=== PATIENT | male | born 1990 | race Caucasian/White ===

== ENCOUNTER 2018-08-02 20:53 | Emergency (ER) | payer OTHER, SELFPAY ==
[2018-08-02 21:10] VITALS: BP 185/104; PULSE 123; RESP 18; O2SAT 100
--- NOTE | 2018-08-02 21:45 | ED.PSYCH ---
HPI - Psych <José Antonio Mathew DO - Last Filed: 08/06/18 07:30> General Chief Complaint: Psychiatric Symptoms Stated Complaint: feel unsafe and that his life is at threat Time Seen by Provider: 08/02/18 21:13 Source: patient and family Mode of arrival: ambulatory Limitations: altered mental status History of Present Illness HPI Narrative: 28-year-old male, nonsmoker with known history of bipolar presents with both parents and a chief complaint of a likely manic episode. Patient was triggered at a therapy session in [place] one week ago and has been spiraling ever since. He began having trouble and went out to his parents house on [address]. His psychiatrist called ahead and states he believes the patient needs hospitalization and even called facilities ahead of time looking for a bed. He believes the patient is having a rather severe manic episode. The patient has been taking his [place], but stopped his Seroquel a few days ago. He denies suicidal or homicidal thoughts. He has been hospitalized in the past for mental health reasons. He denies alcohol or drugs. Parents drove him here and he became scared that they were attempting to hurt him [place] He was [place] here by Police. complaint: altered mental status Onset (ago): day(s) Duration: getting worse History of same: Yes Exacerbating factors: therapy Context: not taking psychiatric medications and significant life stressor Associated psychiatric symptoms: racing thoughts Associated symptoms: denies other symptoms Treatments prior to arrival: none Related Data Home Medications Medication Instructions Recorded Confirmed [EMERGEN-C] PRN #0 01/04/12 ibuprofen 200 mg PO PRN #0 01/04/12 lithium carbonate 600 mg PO BID 08/03/18 08/03/18 Allergies Allergy/AdvReac Type Severity Reaction Status Date / Time No Known Drug Allergies Allergy Verified 08/02/18 21:10 Review of Systems <DO Quinn Venegas Last Filed: 08/06/18 07:30> Constitutional Denies chills, Denies fever(s), Denies lethargy and Denies weakness Eyes Denies change in vision, Denies eye discharge, Denies irritation and Denies loss of vision ENT Ears, Nose, Mouth, and Throat: Denies change in voice, Denies neck pain and Denies sore throat Cardiovascular Denies chest pain, Denies irregular heart rhythm, Denies lightheadedness, Denies palpitations, Denies dyspnea, Denies dyspnea on exertion and Denies orthopnea Respiratory Denies cough, Denies dyspnea, Denies dyspnea on exertion and Denies wheezing Gastrointestinal Gastrointestinal: Denies abdominal pain, Denies change in bowel habits, Denies diarrhea, Denies nausea and Denies vomiting Genitourinary Denies hematuria, Denies flank pain, Denies urinary incontinence and Denies urinary urgency Musculoskeletal Denies neck pain Integumentary/Breasts Denies pruritus, Denies erythema, Denies rash and Denies wounds Neurologic Denies confusion, Denies loss of vision and Denies weakness Psychiatric Denies anxiety, Denies confusion, Denies depression, Reports difficulty concentrating, Reports paranoia, Denies homicidal ideation and Denies suicidal ideation Endocrine Denies palpitations Hematologic/Lymphatic Denies easy bruising Allergic/Immunologic Denies wheezing Exam <José Antonio Mathew, DO - Last Filed: 08/06/18 07:30> Narrative Exam Narrative: 28M in obvious distress, upset, pacing in his room. Admittedly scared Initial Vital Signs Initial Vital Signs: Vital Signs Pulse Rate 123 H 08/02/18 21:10 Respiratory Rate 18 08/02/18 21:10 Blood Pressure 185/104 H 08/02/18 21:10 Pulse Oximetry 100 08/02/18 21:10 Const General: cooperative, well developed, acute distress and anxious Nutritional Appearance: well nourished Orientation: alert, awake, oriented x3 and not confused [facility] Head: normal to inspection Ears: hearing grossly normal bilaterally Nose: external nose normal Face and sinus: normal facial exam Eyes General: appearance normal, both eyes and all related structures Eyelids: eyelids normal Conjunctivae: conjunctivae normal Sclera: sclerae normal Pupils: PERRL EOM: EOM intact bilaterally Neck Neck: normal visual inspection, trachea midline, No lymphadenopathy, No midline deformity and No JVD Lymphatic: No lymphedema Chest Chest: normal inspection of the chest Resp Effort & Inspection: normal respiratory effort, able to speak in complete sentences, no respiratory distress and no use of accessory muscles Auscultation: clear to auscultation bilaterally, no rales, no rhonchi and no wheezes GI Inspection: non-distended Palpation: soft, no hepatosplenomegaly, No guarding, No pulsatile mass and No tender Auscultation: normal bowel sounds Back/Spine/Pelvis Back: No CVA tenderness Cervical Spine: cervical ROM normal and No pain with cervical ROM Thoracic/Lumbar Spine: thoracic and lumbar spine normal to inspection Skin General: no rashes or lesions noted, No jaundice and No petechiae Neuro General: alert, oriented x3, gait normal and no focal motor deficits Speech: speech normal Psych Appearance: grossly normal Speech and Movement: pressured speech and restless Mood: anxious mood and paranoid Affect: anxious affect Attitude: guarded <Rima Blankenship DO - Last Filed: 08/03/18 15:33> Initial Vital Signs Initial Vital Signs: Vital Signs Pulse Rate 123 H 08/02/18 21:10 Respiratory Rate 18 08/02/18 21:10 Blood Pressure 185/104 H 08/02/18 21:10 Pulse Oximetry 100 08/02/18 21:10 Course <José Antonio Mathew DO - Last Filed: 08/06/18 07:30> Orders Ordered: Discontinued Medications Diazepam (Valium) 5 mg PO NOW ONE Stop: 08/02/18 21:44 Last Admin: 08/02/18 21:49 Dose: 5 mg Ibuprofen (Advil) 400 mg PO NOW ONE Stop: 08/03/18 03:08 Last Admin: 08/03/18 03:20 Dose: 400 mg [place] Carbonate ([place] Carbonate) 300 mg PO NOW ONE Stop: 08/03/18 05:58 Last Admin: 08/03/18 07:18 Dose: 300 mg [place] Carbonate ([place] Carbonate) 300 mg PO NOW ONE Stop: 08/03/18 09:39 Last Admin: 08/03/18 10:05 Dose: 300 mg Lorazepam (Ativan) 2 mg PO NOW ONE Stop: 08/03/18 04:02 Last Admin: 08/03/18 04:17 Dose: 2 mg Lorazepam (Ativan) 1 mg IV NOW ONE Stop: 08/03/18 14:14 Last Admin: 08/03/18 14:19 Dose: Lorazepam (Ativan) 1 mg PO NOW ONE Stop: 08/03/18 14:19 Last Admin: 08/03/18 14:20 Dose: 1 mg Olanzapine (Zyprexa Zydis) 10 mg PO NOW ONE Stop: 08/03/18 01:31 Last Admin: 08/03/18 01:34 Dose: 10 mg Reevaluation(s) Reevaluation #1: Patient continuing the escalating of his manic behavior up until just before [facility]HP arise. He is flight of ideas and pressured speech and even began spotting confucianism terms. He may 2 attempts at leaving the room but was able to be verbally redirected. DCR has spent a significant amount of time with the patient and agrees he is gravely disabled and will meet admission criteria. After making multiple phone calls he is determined there is no available bed in the [facility] and must walk away. He has given information to the [facility] who will be checking in on the patient before . Patient is agreeable to waiting for a repeat evaluation later today. There are expected discharges at 10:00 a.m. Vital Signs - 8 hr 08/03/18 08:45 08/03/18 14:30 Temperature 96.4 F L 97.6 F Pulse Rate 113 H 108 H Respiratory Rate 20 18 Blood Pressure [Right Arm] 170/97 H 160/102 H Pulse Oximetry 98 96 <Rima Blankenship, - Last Filed: 08/03/18 15:33> Orders Ordered: Discontinued Medications Diazepam (Valium) 5 mg PO NOW ONE Stop: 08/02/18 21:44 Last Admin: 08/02/18 21:49 Dose: 5 mg Ibuprofen (Advil) 400 mg PO NOW ONE Stop: 08/03/18 03:08 Last Admin: 08/03/18 03:20 Dose: 400 mg [place] Carbonate ([place] Carbonate) 300 mg PO NOW ONE Stop: 08/03/18 05:58 Last Admin: 08/03/18 07:18 Dose: 300 mg [place] Carbonate ([place] Carbonate) 300 mg PO NOW ONE Stop: 08/03/18 09:39 Last Admin: 08/03/18 10:05 Dose: 300 mg Lorazepam (Ativan) 2 mg PO NOW ONE Stop: 08/03/18 04:02 Last Admin: 08/03/18 04:17 Dose: 2 mg Lorazepam (Ativan) 1 mg IV NOW ONE Stop: 08/03/18 14:14 Last Admin: 08/03/18 14:19 Dose: Lorazepam (Ativan) 1 mg PO NOW ONE Stop: 08/03/18 14:19 Last Admin: 08/03/18 14:20 Dose: 1 mg Olanzapine (Zyprexa Zydis) 10 mg PO NOW ONE Stop: 08/03/18 01:31 Last Admin: 08/03/18 01:34 Dose: 10 mg Reevaluation(s) Reevaluation #1: Patient evaluated with Dr. Mathew. Patient is calm at this time and we discussed plan for [facility] to re-dispatch at 10am as they feel patient would benefit from hospitalization. Patient is aware. He received his usual morning medications. Time: 07:15 Time: 13:47 Reevaluation #3: Patient has been checked on several times, he is uncomfortable with door to the room closed so kept open. He has had breakfast and lunch and has been cooperative while here. Evaluated again by [facility] with [facility]. Who detained patient, he is aware of this and comfortable with this and plan for transport to [facility]. He is accepted by Dr. Webb. Patient was given additional 300mg lithium this morning. His dose was increased to 600mg daily on 07/11/18. Patient history and labs also reviewed with parents who have been in the waiting area during patient's entire stay. [place] level was subtherapeutic. Patient feeling more anxious and given dose of ativan 1mg po EMS arrived and patient transported without issue. Vital Signs - 8 hr 08/03/18 08:45 08/03/18 14:30 Temperature 96.4 F L 97.6 F Pulse Rate 113 H 108 H Respiratory Rate 20 18 Blood Pressure [Right Arm] 170/97 H 160/102 H Pulse Oximetry 98 96 MDM - Psych <José Antonio Mathew, DO - Last Filed: 08/06/18 07:30> Lab Data Result diagrams: 08/02/18 21:49 08/02/18 21:49 Lab Results 08/02/18 08/02/18 08/02/18 Range/Units 21:15 21:49 21:49 WBC 11.1 H (4.5-11.0) X10^3/uL RBC 5.28 (4.5-5.9) X10^6/uL Hgb 16.3 (13.5-17.5) g/dL Hct 47.4 (41-53) % MCV 89.8 (80-100) fL MCH 30.8 (26-34) PG MCHC 34.3 (30-36) % RDW 12.5 (11.6-14.8) % Plt Count 215 (150-400) X10^3/uL Neut % (Auto) 82.4 H (50-75) % Lymph % (Auto) 9.0 L (25-40) % Rhea % (Auto) 7.9 (3-14) % Eos % (Auto) 0.3 L (2-4) % Baso % (Auto) 0.4 (0-2) % Neut # (Auto) 9200 H (5658-9293) /uL Lymph # (Auto) 1000 L (1617-6857) /uL Rhea # (Auto) 900 (0-900) /uL Eos # (Auto) 0 (0-450) /uL Baso # (Auto) 0 (0-100) /uL Sodium 138 (137-145) mmol/L Potassium 4.5 (3.4-5.1) mmol/L Chloride 99 (98-107) mmol/L Carbon Dioxide 29 (22-32) mmol/L BUN 16 (9-20) mg/dL Creatinine 1.00 (0.66-1.25) mg/dL Estimated GFR > 60.0 (>60) mL/min BUN/Creatinine Ratio 16.0 (6-22) Glucose 101 H (70-100) mg/dL Calcium 10.1 (8.4-10.2) mg/dL Total Bilirubin 0.6 (0.2-1.3) mg/dL AST 41 (17-59) IU/L ALT 65 (21-72) IU/L Alkaline Phosphatase 82 (38-126) U/L Total Protein 8.2 (6.3-8.2) g/dL Albumin 5.1 H (3.5-5.0) g/dL Globulin 3.1 (1.7-4.1) g/dL Albumin/Globulin Ratio 1.6 (1.0-2.8) TSH (0.47-4.68) uIU/mL Urine Opiates Screen Negative (Negative) Ur Oxycodone Screen Negative (Negative) Urine Methadone Screen Negative (Negative) Ur Barbiturates Screen Negative (Negative) U Tricyclic Antidepress Positive H (Negative) Ur Phencyclidine Scrn Negative (Negative) Ur Amphetamines Screen Negative (Negative) U Methamphetamines Scrn Negative (Negative) Ur MDMA Scrn (Ecstasy) Negative (Negative) U Benzodiazepines Scrn Negative (Negative) [place] (0.6-1.2) mmol/L Urine Cocaine Screen Negative (Negative) U Marijuana (THC) Screen Negative (Negative) Ethyl Alcohol < 10 mg/dL 08/02/18 Range/Units 21:49 WBC (4.5-11.0) X10^3/uL RBC (4.5-5.9) X10^6/uL Hgb (13.5-17.5) g/dL Hct (41-53) % MCV (80-100) fL MCH (26-34) PG MCHC (30-36) % RDW (11.6-14.8) % Plt Count (150-400) X10^3/uL Neut % (Auto) (50-75) % Lymph % (Auto) (25-40) % Rhea % (Auto) (3-14) % Eos % (Auto) (2-4) % Baso % (Auto) (0-2) % Neut # (Auto) (6407-5544) /uL Lymph # (Auto) (5673-1801) /uL Rhea # (Auto) (0-900) /uL Eos # (Auto) (0-450) /uL Baso # (Auto) (0-100) /uL Sodium (137-145) mmol/L Potassium (3.4-5.1) mmol/L Chloride (98-107) mmol/L Carbon Dioxide (22-32) mmol/L BUN (9-20) mg/dL Creatinine (0.66-1.25) mg/dL Estimated GFR (>60) mL/min BUN/Creatinine Ratio (6-22) Glucose (70-100) mg/dL Calcium (8.4-10.2) mg/dL Total Bilirubin (0.2-1.3) mg/dL AST (17-59) IU/L ALT (21-72) IU/L Alkaline Phosphatase (38-126) U/L Total Protein (6.3-8.2) g/dL Albumin (3.5-5.0) g/dL Globulin (1.7-4.1) g/dL Albumin/Globulin Ratio (1.0-2.8) TSH 2.31 (0.47-4.68) uIU/mL Urine Opiates Screen (Negative) Ur Oxycodone Screen (Negative) Urine Methadone Screen (Negative) Ur Barbiturates Screen (Negative) U Tricyclic Antidepress (Negative) Ur Phencyclidine Scrn (Negative) Ur Amphetamines Screen (Negative) U Methamphetamines Scrn (Negative) Ur MDMA Scrn (Ecstasy) (Negative) U Benzodiazepines Scrn (Negative) [place] 0.5 L (0.6-1.2) mmol/L Urine Cocaine Screen (Negative) U Marijuana (THC) Screen (Negative) Ethyl Alcohol mg/dL <Rima Blankenship, DO - Last Filed: 08/03/18 15:33> Lab Data Attestation: I reviewed the patient's lab results. Lab Results 08/02/18 08/02/18 08/02/18 Range/Units 21:15 21:49 21:49 WBC 11.1 H (4.5-11.0) X10^3/uL RBC 5.28 (4.5-5.9) X10^6/uL Hgb 16.3 (13.5-17.5) g/dL Hct 47.4 (41-53) % MCV 89.8 (80-100) fL MCH 30.8 (26-34) PG MCHC 34.3 (30-36) % RDW 12.5 (11.6-14.8) % Plt Count 215 (150-400) X10^3/uL Neut % (Auto) 82.4 H (50-75) % Lymph % (Auto) 9.0 L (25-40) % Rhea % (Auto) 7.9 (3-14) % Eos % (Auto) 0.3 L (2-4) % Baso % (Auto) 0.4 (0-2) % Neut # (Auto) 9200 H (4316-7207) /uL Lymph # (Auto) 1000 L (5571-7262) /uL Rhea # (Auto) 900 (0-900) /uL Eos # (Auto) 0 (0-450) /uL Baso # (Auto) 0 (0-100) /uL Sodium 138 (137-145) mmol/L Potassium 4.5 (3.4-5.1) mmol/L Chloride 99 (98-107) mmol/L Carbon Dioxide 29 (22-32) mmol/L BUN 16 (9-20) mg/dL Creatinine 1.00 (0.66-1.25) mg/dL Estimated GFR > 60.0 (>60) mL/min BUN/Creatinine Ratio 16.0 (6-22) Glucose 101 H (70-100) mg/dL Calcium 10.1 (8.4-10.2) mg/dL Total Bilirubin 0.6 (0.2-1.3) mg/dL AST 41 (17-59) IU/L ALT 65 (21-72) IU/L Alkaline Phosphatase 82 (38-126) U/L Total Protein 8.2 (6.3-8.2) g/dL Albumin 5.1 H (3.5-5.0) g/dL Globulin 3.1 (1.7-4.1) g/dL Albumin/Globulin Ratio 1.6 (1.0-2.8) TSH (0.47-4.68) uIU/mL Urine Opiates Screen Negative (Negative) Ur Oxycodone Screen Negative (Negative) Urine Methadone Screen Negative (Negative) Ur Barbiturates Screen Negative (Negative) U Tricyclic Antidepress Positive H (Negative) Ur Phencyclidine Scrn Negative (Negative) Ur Amphetamines Screen Negative (Negative) U Methamphetamines Scrn Negative (Negative) Ur MDMA Scrn (Ecstasy) Negative (Negative) U Benzodiazepines Scrn Negative (Negative) [place] (0.6-1.2) mmol/L Urine Cocaine Screen Negative (Negative) U Marijuana (THC) Screen Negative (Negative) Ethyl Alcohol < 10 mg/dL 08/02/18 Range/Units 21:49 WBC (4.5-11.0) X10^3/uL RBC (4.5-5.9) X10^6/uL Hgb (13.5-17.5) g/dL Hct (41-53) % MCV (80-100) fL MCH (26-34) PG MCHC (30-36) % RDW (11.6-14.8) % Plt Count (150-400) X10^3/uL Neut % (Auto) (50-75) % Lymph % (Auto) (25-40) % Rhea % (Auto) (3-14) % Eos % (Auto) (2-4) % Baso % (Auto) (0-2) % Neut # (Auto) (9213-2647) /uL Lymph # (Auto) (1120-6820) /uL Rhea # (Auto) (0-900) /uL Eos # (Auto) (0-450) /uL Baso # (Auto) (0-100) /uL Sodium (137-145) mmol/L Potassium (3.4-5.1) mmol/L Chloride (98-107) mmol/L Carbon Dioxide (22-32) mmol/L BUN (9-20) mg/dL Creatinine (0.66-1.25) mg/dL Estimated GFR (>60) mL/min BUN/Creatinine Ratio (6-22) Glucose (70-100) mg/dL Calcium (8.4-10.2) mg/dL Total Bilirubin (0.2-1.3) mg/dL AST (17-59) IU/L ALT (21-72) IU/L Alkaline Phosphatase (38-126) U/L Total Protein (6.3-8.2) g/dL Albumin (3.5-5.0) g/dL Globulin (1.7-4.1) g/dL Albumin/Globulin Ratio (1.0-2.8) TSH 2.31 (0.47-4.68) uIU/mL Urine Opiates Screen (Negative) Ur Oxycodone Screen (Negative) Urine Methadone Screen (Negative) Ur Barbiturates Screen (Negative) U Tricyclic Antidepress (Negative) Ur Phencyclidine Scrn (Negative) Ur Amphetamines Screen (Negative) U Methamphetamines Scrn (Negative) Ur MDMA Scrn (Ecstasy) (Negative) U Benzodiazepines Scrn (Negative) [place] 0.5 L (0.6-1.2) mmol/L Urine Cocaine Screen (Negative) U Marijuana (THC) Screen (Negative) Ethyl Alcohol mg/dL MDM Narrative Medical decision making narrative: Patient has been official detained by [facility] and has bed secured at [facility]. Discharge Plan Departure Patient Disposition: Xfer Psychiatric Hosp Clinical Impression: Bipolar affective, manic, severe Discharge Date/Time: 08/03/18 14:52 Interventions: ED Discharge Assessment Last Done: 08/03/18 14:33
[2018-08-02] MEDS: diazePAM 5 MG TABLET PO (21:49)
--- NOTE | 2018-08-02 21:51 | ED_ITS ---
HPI - Psych <José Antonio Mathew DO - Last Filed: 08/06/18 07:30> General Chief Complaint: Psychiatric Symptoms Stated Complaint: feel unsafe and that his life is at threat Time Seen by Provider: 08/02/18 21:13 Source: patient and family Mode of arrival: ambulatory Limitations: altered mental status History of Present Illness HPI Narrative: 28-year-old male, nonsmoker with known history of bipolar presents with both parents and a chief complaint of a likely manic episode. Patient was triggered at a therapy session in [place] one week ago and has been spiraling ever since. He began having trouble and went out to his parents house on [address]. His psychiatrist called ahead and states he believes the patient needs hospitalization and even called facilities ahead of time looking for a bed. He believes the patient is having a rather severe manic episode. The patient has been taking his Earle, but stopped his Seroquel a few days ago. He denies suicidal or homicidal thoughts. He has been hospitalized in the past for mental health reasons. He denies alcohol or drugs. Parents drove him here and he became scared that they were attempting to hurt him [place] He was transported here by Police. complaint: altered mental status Onset (ago): day(s) Duration: getting worse History of same: Yes Exacerbating factors: therapy Context: not taking psychiatric medications and significant life stressor Associated psychiatric symptoms: racing thoughts Associated symptoms: denies other symptoms Treatments prior to arrival: none Related Data Home Medications Medication Instructions Recorded Confirmed [EMERGEN-C] PRN #0 01/04/12 ibuprofen 200 mg PO PRN #0 01/04/12 lithium carbonate 600 mg PO BID 08/03/18 08/03/18 Allergies Allergy/AdvReac Type Severity Reaction Status Date / Time No Known Drug Allergies Allergy Verified 08/02/18 21:10 Review of Systems <DO Quinn Venegas Last Filed: 08/06/18 07:30> Constitutional Denies chills, Denies fever(s), Denies lethargy and Denies weakness Eyes Denies change in vision, Denies eye discharge, Denies irritation and Denies loss of vision ENT Ears, Nose, Mouth, and Throat: Denies change in voice, Denies neck pain and Denies sore throat Cardiovascular Denies chest pain, Denies irregular heart rhythm, Denies lightheadedness, Denies palpitations, Denies dyspnea, Denies dyspnea on exertion and Denies orthopnea Respiratory Denies cough, Denies dyspnea, Denies dyspnea on exertion and Denies wheezing Gastrointestinal Gastrointestinal: Denies abdominal pain, Denies change in bowel habits, Denies diarrhea, Denies nausea and Denies vomiting Genitourinary Denies hematuria, Denies flank pain, Denies urinary incontinence and Denies urinary urgency Musculoskeletal Denies neck pain Integumentary/Breasts Denies pruritus, Denies erythema, Denies rash and Denies wounds Neurologic Denies confusion, Denies loss of vision and Denies weakness Psychiatric Denies anxiety, Denies confusion, Denies depression, Reports difficulty concentrating, Reports paranoia, Denies homicidal ideation and Denies suicidal ideation Endocrine Denies palpitations Hematologic/Lymphatic Denies easy bruising Allergic/Immunologic Denies wheezing Exam <José Antonio Mathew, DO - Last Filed: 08/06/18 07:30> Narrative Exam Narrative: 28M in obvious distress, upset, pacing in his room. Admittedly scared Initial Vital Signs Initial Vital Signs: Vital Signs Pulse Rate 123 H 08/02/18 21:10 Respiratory Rate 18 08/02/18 21:10 Blood Pressure 185/104 H 08/02/18 21:10 Pulse Oximetry 100 08/02/18 21:10 Const General: cooperative, well developed, acute distress and anxious Nutritional Appearance: well nourished Orientation: alert, awake, oriented x3 and not confused [facility] Head: normal to inspection Ears: hearing grossly normal bilaterally Nose: external nose normal Face and sinus: normal facial exam Eyes General: appearance normal, both eyes and all related structures Eyelids: eyelids normal Conjunctivae: conjunctivae normal Sclera: sclerae normal Pupils: PERRL EOM: EOM intact bilaterally Neck Neck: normal visual inspection, trachea midline, No lymphadenopathy, No midline deformity and No JVD Lymphatic: No lymphedema Chest Chest: normal inspection of the chest Resp Effort & Inspection: normal respiratory effort, able to speak in complete sentences, no respiratory distress and no use of accessory muscles Auscultation: clear to auscultation bilaterally, no rales, no rhonchi and no wheezes GI Inspection: non-distended Palpation: soft, no hepatosplenomegaly, No guarding, No pulsatile mass and No tender Auscultation: normal bowel sounds Back/Spine/Pelvis Back: No CVA tenderness Cervical Spine: cervical ROM normal and No pain with cervical ROM Thoracic/Lumbar Spine: thoracic and lumbar spine normal to inspection Skin General: no rashes or lesions noted, No jaundice and No petechiae Neuro General: alert, oriented x3, gait normal and no focal motor deficits Speech: speech normal Psych Appearance: grossly normal Speech and Movement: pressured speech and restless Mood: anxious mood and paranoid Affect: anxious affect Attitude: guarded <Rima Blankenship DO - Last Filed: 08/03/18 15:33> Initial Vital Signs Initial Vital Signs: Vital Signs Pulse Rate 123 H 08/02/18 21:10 Respiratory Rate 18 08/02/18 21:10 Blood Pressure 185/104 H 08/02/18 21:10 Pulse Oximetry 100 08/02/18 21:10 Course <José Antonio Mathew DO - Last Filed: 08/06/18 07:30> Orders Ordered: Discontinued Medications Diazepam (Valium) 5 mg PO NOW ONE Stop: 08/02/18 21:44 Last Admin: 08/02/18 21:49 Dose: 5 mg Ibuprofen (Advil) 400 mg PO NOW ONE Stop: 08/03/18 03:08 Last Admin: 08/03/18 03:20 Dose: 400 mg Earle Carbonate (Earle Carbonate) 300 mg PO NOW ONE Stop: 08/03/18 05:58 Last Admin: 08/03/18 07:18 Dose: 300 mg Earle Carbonate (Earle Carbonate) 300 mg PO NOW ONE Stop: 08/03/18 09:39 Last Admin: 08/03/18 10:05 Dose: 300 mg Lorazepam (Ativan) 2 mg PO NOW ONE Stop: 08/03/18 04:02 Last Admin: 08/03/18 04:17 Dose: 2 mg Lorazepam (Ativan) 1 mg IV NOW ONE Stop: 08/03/18 14:14 Last Admin: 08/03/18 14:19 Dose: Lorazepam (Ativan) 1 mg PO NOW ONE Stop: 08/03/18 14:19 Last Admin: 08/03/18 14:20 Dose: 1 mg Olanzapine (Zyprexa Zydis) 10 mg PO NOW ONE Stop: 08/03/18 01:31 Last Admin: 08/03/18 01:34 Dose: 10 mg Reevaluation(s) Reevaluation #1: Patient continuing the escalating of his manic behavior up until just before MHP arise. He is flight of ideas and pressured speech and even began spotting pentecostal terms. He may 2 attempts at leaving the room but was able to be verbally redirected. DCR has spent a significant amount of time with the patient and agrees he is gravely disabled and will meet admission criteria. After making multiple phone calls he is determined there is no available bed in the [facility] and must walk away. He has given information to the [employer] who will be checking in on the patient before . Patient is agreeable to waiting for a repeat evaluation later today. There are expected discharges at 10:00 a.m. Vital Signs - 8 hr 08/03/18 08:45 08/03/18 14:30 Temperature 96.4 F L 97.6 F Pulse Rate 113 H 108 H Respiratory Rate 20 18 Blood Pressure [Right Arm] 170/97 H 160/102 H Pulse Oximetry 98 96 <Rima Blankenship, - Last Filed: 08/03/18 15:33> Orders Ordered: Discontinued Medications Diazepam (Valium) 5 mg PO NOW ONE Stop: 08/02/18 21:44 Last Admin: 08/02/18 21:49 Dose: 5 mg Ibuprofen (Advil) 400 mg PO NOW ONE Stop: 08/03/18 03:08 Last Admin: 08/03/18 03:20 Dose: 400 mg Earle Carbonate (Earle Carbonate) 300 mg PO NOW ONE Stop: 08/03/18 05:58 Last Admin: 08/03/18 07:18 Dose: 300 mg Earle Carbonate (Earle Carbonate) 300 mg PO NOW ONE Stop: 08/03/18 09:39 Last Admin: 08/03/18 10:05 Dose: 300 mg Lorazepam (Ativan) 2 mg PO NOW ONE Stop: 08/03/18 04:02 Last Admin: 08/03/18 04:17 Dose: 2 mg Lorazepam (Ativan) 1 mg IV NOW ONE Stop: 08/03/18 14:14 Last Admin: 08/03/18 14:19 Dose: Lorazepam (Ativan) 1 mg PO NOW ONE Stop: 08/03/18 14:19 Last Admin: 08/03/18 14:20 Dose: 1 mg Olanzapine (Zyprexa Zydis) 10 mg PO NOW ONE Stop: 08/03/18 01:31 Last Admin: 08/03/18 01:34 Dose: 10 mg Reevaluation(s) Reevaluation #1: Patient evaluated with Dr. Mathew. Patient is calm at this time and we discussed plan for [facility] to re-dispatch at 10am as they feel patient would benefit from hospitalization. Patient is aware. He received his usual morning medications. Time: 07:15 Time: 13:47 Reevaluation #3: Patient has been checked on several times, he is uncomfortable with door to the room closed so kept open. He has had breakfast and lunch and has been cooperative while here. Evaluated again by [facility] with Marj. Who detained patient, he is aware of this and comfortable with this and plan for transport to [facility]. He is accepted by Dr. Webb. Patient was given additional 300mg lithium this morning. His dose was increased to 600mg daily on 07/11/18. Patient history and labs also reviewed with parents who have been in the waiting area during patient's entire stay. Earle level was subtherapeutic. Patient feeling more anxious and given dose of ativan 1mg po EMS arrived and patient transported without issue. Vital Signs - 8 hr 08/03/18 08:45 08/03/18 14:30 Temperature 96.4 F L 97.6 F Pulse Rate 113 H 108 H Respiratory Rate 20 18 Blood Pressure [Right Arm] 170/97 H 160/102 H Pulse Oximetry 98 96 MDM - Psych <José Antonio Mathew, DO - Last Filed: 08/06/18 07:30> Lab Data Result diagrams: 08/02/18 21:49 08/02/18 21:49 Lab Results 08/02/18 08/02/18 08/02/18 Range/Units 21:15 21:49 21:49 WBC 11.1 H (4.5-11.0) X10^3/uL RBC 5.28 (4.5-5.9) X10^6/uL Hgb 16.3 (13.5-17.5) g/dL Hct 47.4 (41-53) % MCV 89.8 (80-100) fL MCH 30.8 (26-34) PG MCHC 34.3 (30-36) % RDW 12.5 (11.6-14.8) % Plt Count 215 (150-400) X10^3/uL Neut % (Auto) 82.4 H (50-75) % Lymph % (Auto) 9.0 L (25-40) % [place] % (Auto) 7.9 (3-14) % Eos % (Auto) 0.3 L (2-4) % Baso % (Auto) 0.4 (0-2) % Neut # (Auto) 9200 H (0460-8541) /uL Lymph # (Auto) 1000 L (5376-0393) /uL [place] # (Auto) 900 (0-900) /uL Eos # (Auto) 0 (0-450) /uL Baso # (Auto) 0 (0-100) /uL Sodium 138 (137-145) mmol/L Potassium 4.5 (3.4-5.1) mmol/L Chloride 99 (98-107) mmol/L Carbon Dioxide 29 (22-32) mmol/L BUN 16 (9-20) mg/dL Creatinine 1.00 (0.66-1.25) mg/dL Estimated GFR > 60.0 (>60) mL/min BUN/Creatinine Ratio 16.0 (6-22) Glucose 101 H (70-100) mg/dL Calcium 10.1 (8.4-10.2) mg/dL Total Bilirubin 0.6 (0.2-1.3) mg/dL AST 41 (17-59) IU/L ALT 65 (21-72) IU/L Alkaline Phosphatase 82 (38-126) U/L Total Protein 8.2 (6.3-8.2) g/dL Albumin 5.1 H (3.5-5.0) g/dL Globulin 3.1 (1.7-4.1) g/dL Albumin/Globulin Ratio 1.6 (1.0-2.8) TSH (0.47-4.68) uIU/mL Urine Opiates Screen Negative (Negative) Ur Oxycodone Screen Negative (Negative) Urine Methadone Screen Negative (Negative) Ur Barbiturates Screen Negative (Negative) U Tricyclic Antidepress Positive H (Negative) Ur Phencyclidine Scrn Negative (Negative) Ur Amphetamines Screen Negative (Negative) U Methamphetamines Scrn Negative (Negative) Ur MDMA Scrn (Ecstasy) Negative (Negative) U Benzodiazepines Scrn Negative (Negative) Earle (0.6-1.2) mmol/L Urine Cocaine Screen Negative (Negative) U Marijuana (THC) Screen Negative (Negative) Ethyl Alcohol < 10 mg/dL 08/02/18 Range/Units 21:49 WBC (4.5-11.0) X10^3/uL RBC (4.5-5.9) X10^6/uL Hgb (13.5-17.5) g/dL Hct (41-53) % MCV (80-100) fL MCH (26-34) PG MCHC (30-36) % RDW (11.6-14.8) % Plt Count (150-400) X10^3/uL Neut % (Auto) (50-75) % Lymph % (Auto) (25-40) % [place] % (Auto) (3-14) % Eos % (Auto) (2-4) % Baso % (Auto) (0-2) % Neut # (Auto) (3604-8728) /uL Lymph # (Auto) (0481-7310) /uL [place] # (Auto) (0-900) /uL Eos # (Auto) (0-450) /uL Baso # (Auto) (0-100) /uL Sodium (137-145) mmol/L Potassium (3.4-5.1) mmol/L Chloride (98-107) mmol/L Carbon Dioxide (22-32) mmol/L BUN (9-20) mg/dL Creatinine (0.66-1.25) mg/dL Estimated GFR (>60) mL/min BUN/Creatinine Ratio (6-22) Glucose (70-100) mg/dL Calcium (8.4-10.2) mg/dL Total Bilirubin (0.2-1.3) mg/dL AST (17-59) IU/L ALT (21-72) IU/L Alkaline Phosphatase (38-126) U/L Total Protein (6.3-8.2) g/dL Albumin (3.5-5.0) g/dL Globulin (1.7-4.1) g/dL Albumin/Globulin Ratio (1.0-2.8) TSH 2.31 (0.47-4.68) uIU/mL Urine Opiates Screen (Negative) Ur Oxycodone Screen (Negative) Urine Methadone Screen (Negative) Ur Barbiturates Screen (Negative) U Tricyclic Antidepress (Negative) Ur Phencyclidine Scrn (Negative) Ur Amphetamines Screen (Negative) U Methamphetamines Scrn (Negative) Ur MDMA Scrn (Ecstasy) (Negative) U Benzodiazepines Scrn (Negative) Earle 0.5 L (0.6-1.2) mmol/L Urine Cocaine Screen (Negative) U Marijuana (THC) Screen (Negative) Ethyl Alcohol mg/dL <Rima Blankenship, DO - Last Filed: 08/03/18 15:33> Lab Data Attestation: I reviewed the patient's lab results. Lab Results 08/02/18 08/02/18 08/02/18 Range/Units 21:15 21:49 21:49 WBC 11.1 H (4.5-11.0) X10^3/uL RBC 5.28 (4.5-5.9) X10^6/uL Hgb 16.3 (13.5-17.5) g/dL Hct 47.4 (41-53) % MCV 89.8 (80-100) fL MCH 30.8 (26-34) PG MCHC 34.3 (30-36) % RDW 12.5 (11.6-14.8) % Plt Count 215 (150-400) X10^3/uL Neut % (Auto) 82.4 H (50-75) % Lymph % (Auto) 9.0 L (25-40) % [place] % (Auto) 7.9 (3-14) % Eos % (Auto) 0.3 L (2-4) % Baso % (Auto) 0.4 (0-2) % Neut # (Auto) 9200 H (7547-0009) /uL Lymph # (Auto) 1000 L (4770-4623) /uL [place] # (Auto) 900 (0-900) /uL Eos # (Auto) 0 (0-450) /uL Baso # (Auto) 0 (0-100) /uL Sodium 138 (137-145) mmol/L Potassium 4.5 (3.4-5.1) mmol/L Chloride 99 (98-107) mmol/L Carbon Dioxide 29 (22-32) mmol/L BUN 16 (9-20) mg/dL Creatinine 1.00 (0.66-1.25) mg/dL Estimated GFR > 60.0 (>60) mL/min BUN/Creatinine Ratio 16.0 (6-22) Glucose 101 H (70-100) mg/dL Calcium 10.1 (8.4-10.2) mg/dL Total Bilirubin 0.6 (0.2-1.3) mg/dL AST 41 (17-59) IU/L ALT 65 (21-72) IU/L Alkaline Phosphatase 82 (38-126) U/L Total Protein 8.2 (6.3-8.2) g/dL Albumin 5.1 H (3.5-5.0) g/dL Globulin 3.1 (1.7-4.1) g/dL Albumin/Globulin Ratio 1.6 (1.0-2.8) TSH (0.47-4.68) uIU/mL Urine Opiates Screen Negative (Negative) Ur Oxycodone Screen Negative (Negative) Urine Methadone Screen Negative (Negative) Ur Barbiturates Screen Negative (Negative) U Tricyclic Antidepress Positive H (Negative) Ur Phencyclidine Scrn Negative (Negative) Ur Amphetamines Screen Negative (Negative) U Methamphetamines Scrn Negative (Negative) Ur MDMA Scrn (Ecstasy) Negative (Negative) U Benzodiazepines Scrn Negative (Negative) Earle (0.6-1.2) mmol/L Urine Cocaine Screen Negative (Negative) U Marijuana (THC) Screen Negative (Negative) Ethyl Alcohol < 10 mg/dL 08/02/18 Range/Units 21:49 WBC (4.5-11.0) X10^3/uL RBC (4.5-5.9) X10^6/uL Hgb (13.5-17.5) g/dL Hct (41-53) % MCV (80-100) fL MCH (26-34) PG MCHC (30-36) % RDW (11.6-14.8) % Plt Count (150-400) X10^3/uL Neut % (Auto) (50-75) % Lymph % (Auto) (25-40) % [place] % (Auto) (3-14) % Eos % (Auto) (2-4) % Baso % (Auto) (0-2) % Neut # (Auto) (4810-8992) /uL Lymph # (Auto) (1799-7114) /uL [place] # (Auto) (0-900) /uL Eos # (Auto) (0-450) /uL Baso # (Auto) (0-100) /uL Sodium (137-145) mmol/L Potassium (3.4-5.1) mmol/L Chloride (98-107) mmol/L Carbon Dioxide (22-32) mmol/L BUN (9-20) mg/dL Creatinine (0.66-1.25) mg/dL Estimated GFR (>60) mL/min BUN/Creatinine Ratio (6-22) Glucose (70-100) mg/dL Calcium (8.4-10.2) mg/dL Total Bilirubin (0.2-1.3) mg/dL AST (17-59) IU/L ALT (21-72) IU/L Alkaline Phosphatase (38-126) U/L Total Protein (6.3-8.2) g/dL Albumin (3.5-5.0) g/dL Globulin (1.7-4.1) g/dL Albumin/Globulin Ratio (1.0-2.8) TSH 2.31 (0.47-4.68) uIU/mL Urine Opiates Screen (Negative) Ur Oxycodone Screen (Negative) Urine Methadone Screen (Negative) Ur Barbiturates Screen (Negative) U Tricyclic Antidepress (Negative) Ur Phencyclidine Scrn (Negative) Ur Amphetamines Screen (Negative) U Methamphetamines Scrn (Negative) Ur MDMA Scrn (Ecstasy) (Negative) U Benzodiazepines Scrn (Negative) Earle 0.5 L (0.6-1.2) mmol/L Urine Cocaine Screen (Negative) U Marijuana (THC) Screen (Negative) Ethyl Alcohol mg/dL MDM Narrative Medical decision making narrative: Patient has been official detained by [facility] and has bed secured at [facility]. Discharge Plan Departure Patient Disposition: Xfer Psychiatric Hosp Clinical Impression: Bipolar affective, manic, severe Discharge Date/Time: 08/03/18 14:52 Interventions: ED Discharge Assessment Last Done: 08/03/18 14:33
--- NOTE | 2018-08-02 21:56 | PC.NURSE ---
ed Provider in contact with patient mental health provider. [facility] has a bed available. Pt is third in line for open bed. Pt mental health provider located that bed for pt. Medical eval in progress to medically clear pt for psych facility.
[2018-08-02 21:58] LABS: Urine Amphetamines Negative (Negative); Urine Barbiturates Negative (Negative); Urine Benzodiazepines Negative (Negative); Urine Cocaine Negative (Negative); Urine MDMA Negative (Negative); Urine Methadone Negative (Negative); Urine Methamphetamines Negative (Negative); Urine Morphine/Opi cutoff 2000 Negative (Negative); Urine Oxycodone Negative (Negative); Urine Phencyclidine Negative (Negative); Urine Tetrahydrocannabinol Negative (Negative); Urine Tricyclic Antidepressant Positive (Negative)
[2018-08-02 22:04] LABS: Add Manual Diff / Slide Review NO; Basophils Absolute Auto 0 /uL (0-100); Basophils Percent Auto 0.4 % (0-2); Eosinophils Absolute Auto 0 /uL (0-450); Eosinophils Percent Auto 0.3 % (2-4); Hematocrit 47.4 % (41-53); Hemoglobin 16.3 g/dL (13.5-17.5); Lymphocytes Absolute Auto 1000 /uL (1100-4500); Mean Corpuscular HGB Conc 34.3 % (30-36); Mean Corpuscular Hemoglobin 30.8 PG (26-34); Mean Corpuscular Volume 89.8 fL (80-100); Monocytes Absolute Auto 900 /uL (0-900); Monocytes Percent Auto 7.9 % (3-14); Neutrophils Absolute Auto 9200 /uL (1500-7000); Neutrophils Percent Auto 82.4 % (50-75); Platelet Count 215 X10^3/uL (150-400); Red Blood Cell Count 5.28 X10^6/uL (4.5-5.9); Red Cell Distribution Width 12.5 % (11.6-14.8); White Blood Cell Count 11.1 X10^3/uL (4.5-11.0)
[2018-08-02 22:10] LABS: Alanine Aminotransferase 65 IU/L (21-72); Albumin 5.1 g/dL (3.5-5.0); Albumin Globulin Ratio 1.6 (1.0-2.8); Alkaline Phosphatase 82 U/L (38-126); Aspartate Aminotransferase 41 IU/L (17-59); Bilirubin Total 0.6 mg/dL (0.2-1.3); Blood Urea Nitrogen 16 mg/dL (9-20); Calcium 10.1 mg/dL (8.4-10.2); Carbon Dioxide 29 mmol/L (22-32); Chloride 99 mmol/L (98-107); Estimated Glomerular Filt Rate > 60.0 mL/min (>60); Globulin 3.1 g/dL (1.7-4.1); Glucose 101 mg/dL (70-100); HEMOLYSIS < 15 (0-50); Potassium 4.5 mmol/L (3.4-5.1); Sodium 138 mmol/L (137-145); Total Protein 8.2 g/dL (6.3-8.2)
[2018-08-02 22:15] LABS: Ethanol (ETOH) < 10 mg/dL
[2018-08-02 22:20] LABS: Lithium 0.5 mmol/L (0.6-1.2)
[2018-08-02 22:40] VITALS: BP 134/81; PULSE 99; RESP 18; O2SAT 100
[2018-08-02 22:54] LABS: Thyroid Stimulating Hormone 2.31 uIU/mL (0.47-4.68)
--- NOTE | 2018-08-02 23:50 | PC.NURSE ---
Solomon at [facility] triage took the call for requesting DCR. Solomon reports she is not sure when dispached DCR will contact us. States she really hard to get ahold of.
--- NOTE | 2018-08-03 00:49 | PC.NURSE ---
Patient is pacing the room making phone call with his cellphone.
--- NOTE | 2018-08-03 00:57 | PC.NURSE ---
0057 Patient is taking linen off bed and folding it, meticulously. Pacing the room.
--- NOTE | 2018-08-03 01:01 | PC.NURSE ---
Patient has bed linen wrapped around his head like a hat. He is in room singing opera, laughing very very loudly. Patient came to the door and started to speak gibberish. Explained to patient right now he needed to sit and be less loud, as he was scaring other patients. Offered a snack. He walked out of the room (with bed sheet turban/hat) and began to sing Prince Rosado from [employer] to me, as though he were really introducing someone to me. Explained he needed to sit down in his bed and that was the one thing he was supposed to do right now.
--- NOTE | 2018-08-03 01:08 | PC.NURSE ---
Pt is showing some difficulty in redirecting. Pt is unpredictable and will begin to follow a command then go of on a tanget as if there were no direction given. Pt is pacing in room and laughing/talking to self. Pt states Im not talking to anbody, just myself. is that ok? DUONG Luna is constantly having to go to the patient room to reorient.
--- NOTE | 2018-08-03 01:14 | PC.NURSE ---
Patient's phone is in his bag in nurse's station
--- NOTE | 2018-08-03 01:23 | PC.NURSE ---
Pt has dressed self in sheets for stretcher. Pt is showing less ability to follow directions and is now moving all of the furniture around and out of his room. DUONG Luna is having to enter pt room to redirect constantly now. Provider aware. Pt handed his cell phone to staff and it was put with belongings in pt belonging locker.
--- NOTE | 2018-08-03 01:23 | PC.NURSE ---
Pt escalating. Moved bedside table out of room and now trying to move bed out of room. 1:1 sitter maintained.
--- NOTE | 2018-08-03 01:26 | PC.NURSE ---
0129 Patient began to lift bed out of room. Physically lifting the bed out of his bed. I asked if he wanted the bed in the room. He said he didn't. I had him sit in the corner as I moved the bed. I moved the bed, the patient began chanting, the doctor came in the room and talked to him. He is currently in the room break dancing.
[2018-08-03] MEDS: OLANZapine ODT 10 MG TAB PO (01:34)
--- NOTE | 2018-08-03 01:40 | PC.NURSE ---
Patient walked out of the room, charged out. Coleman in X- ray convinced him to get in room. Sitting in room with snack praying.
--- NOTE | 2018-08-03 01:46 | PC.NURSE ---
Patient is pacing, singing in different languages, asked for snacks in different languages. Explained we speak Kinyarwanda
--- NOTE | 2018-08-03 01:57 | PC.NURSE ---
0157 patient throwing himself against the wall,
--- NOTE | 2018-08-03 01:58 | PC.NURSE ---
DCR Jeramy arrived 004
--- NOTE | 2018-08-03 02:24 | PC.NURSE ---
Patient is standing in the middle of the room singing loudly.
--- NOTE | 2018-08-03 02:39 | PC.NURSE ---
Gave patient a snack and explained he needed to sit down and eat his snack.
--- NOTE | 2018-08-03 02:46 | PC.NURSE ---
Gave patient multiple snacks in the span of 10 minutes. Patient is requesting more snacks, more drinks, and to be moved because I don't feel safe here.
--- NOTE | 2018-08-03 02:55 | PC.NURSE ---
Patient continually asking for snacks. Explained to him we have a limited number of snacks, believing I was setting boundaries. I gave him a yogurt and cheese stick. Patient then came to the door and said I feel like I did something wrong. I am conflicted that I did something wrong. I said No I just need you to eat your snack and get some rest.
--- NOTE | 2018-08-03 03:05 | PC.NURSE ---
DUONG Luna attempted to take pt vitals. Pt refused stating No you can't, there is a wall and walked away from REPLENISHMENT ANALYST
--- NOTE | 2018-08-03 03:07 | PC.NURSE ---
Pt reports he has a 3/10 headache and would like some IBUPROFEN. Provider notified, verbal order recieved. Pt was asked again if we could take his vitals and he is now allowing DUONG hastings take his vitals.
[2018-08-03 03:08] VITALS: BP 171/103; PULSE 127; RESP 18; TEMP 36.1; O2SAT 97
--- NOTE | 2018-08-03 03:15 | PC.NURSE ---
Turned off lights in the room
[2018-08-03] MEDS: IBUPROFEN 400 MG TABLET PO (03:20)
--- NOTE | 2018-08-03 03:28 | PC.NURSE ---
Patient closed the door. Door locked itself. Alerted DAVID Garcia.
--- NOTE | 2018-08-03 03:41 | PC.NURSE ---
Patient is walking around, changing clothes, pacing
--- NOTE | 2018-08-03 03:57 | PC.NURSE ---
Patient was sitting on blankets. Was adjusting his sheets. Patient wrapped sheet around his head, like he has done multiple times. While I was trying to document on patient I noticed patient towards the room door out of the corner of my eye. When I got up, patient bolted out of the door, on the east side of the emergency room, I yelled hey! hey!he ran towards the big doors, down to X-ray, x-ray man then got up and we began to anselmo him. He turned left when the hallway ended and then went through the doors until the hallway ended before the surgery area. Didn't get in the surgery area. Doctor talked to patient. I said I needed for him to sit down on the mess of blankets he made and relax. Patient then tried to explain i wanted some fresh air. You aren't listening to me. Attempted to listen, but also set firm boundaries. Brought patient his mattress and told him it was late at night and he needed to sleep now. Patient is on mattress. Staff aware.
[2018-08-03] MEDS: LORazepam 0.5 MG TABLET 2 MG PO (04:17)
--- NOTE | 2018-08-03 04:17 | PC.NURSE ---
ativan given from stock transfered from ICU, 2 x 1mg po.
--- NOTE | 2018-08-03 04:18 | PC.NURSE ---
Pt bolted down DI hallway right past our sitter at his door. Sitter and and sap security architect followed him down the miller and around the corner and he stopped. He then stated to her he was done running and that he needed fresh air. He calmly walked back to his room with sitter and sap security architect. Pt is very unpredictable and an elopment risk. Provider is aware as he witnessed the attempt at elopment. Pt calmy accepted ativan and stated I look forward to it's effects, I just feel better now. Atbutch has been on board for 2 minutes when he stated this.
--- NOTE | 2018-08-03 04:52 | PC.NURSE ---
Patient resting on mattress
--- NOTE | 2018-08-03 05:13 | PC.NURSE ---
Patient sleeping on mattress
--- NOTE | 2018-08-03 05:32 | PC.NURSE ---
Pt is sleeping and being allowed to sleep. Respirations observed.
--- NOTE | 2018-08-03 05:38 | PC.NURSE ---
Patient sleeping on mattress on his side
--- NOTE | 2018-08-03 06:16 | PC.NURSE ---
Patient laying on mattress. Head on pillow.
--- NOTE | 2018-08-03 06:43 | PC.NURSE ---
Patient woke up, took off tshirt, went to the bathroom. Sitting in bathroom. Checked on patient to see if he was okay.
--- NOTE | 2018-08-03 06:54 | PC.NURSE ---
Patient got up, was wondering around room, trying to have mattress on wall, walked out, began to pantomime something I told him I need you to use your words he asked for velcro. I asked what for. He said to stick the pad on the wall. Explained it was his mattress and it was time to sleep. I asked him if he needed anything else. He wanted breakfast. I explained breakfast will be here at around 0800 and try to get some more sleep. He laid on on his josé antonio for 5 minutes and said he was well rested and was ready for the day. I explained he should go back to bed for a little longer. Brought bedside table into room.
--- NOTE | 2018-08-03 07:10 | PC.NURSE ---
Patient is pacing back and forth in the room.
[2018-08-03] MEDS: LITHIUM 150 MG IR CAPSULE 300 MG PO ×2 (07:18→10:05)
--- NOTE | 2018-08-03 07:26 | PC.NURSE ---
Patient wants to take a shower, RN and notified.
--- NOTE | 2018-08-03 07:47 | PC.NURSE ---
Patient took a shower and brushed his teeth. Back in room now.
--- NOTE | 2018-08-03 08:01 | PC.NURSE ---
Patient ate breakfast and is now standing in doorway.
--- NOTE | 2018-08-03 08:24 | PC.NURSE ---
Patient is pacing back and forth in the hallway, RN said that this was ok for him to do as long as no patients were here in this particular hallway.
--- NOTE | 2018-08-03 08:30 | PC.NURSE ---
Patient is back in his room per RN telling him that patients are here now so he needed to go back to his room.
[2018-08-03 08:45] VITALS: BP 170/97; PULSE 113; RESP 20; TEMP 35.8; O2SAT 98
--- NOTE | 2018-08-03 08:45 | PC.NURSE ---
Patient wanted a snack, got him a yogurt and apple sauce.
--- NOTE | 2018-08-03 09:00 | PC.NURSE ---
Patient is in the room, sitting on the mattress singing.
--- NOTE | 2018-08-03 09:14 | PC.NURSE ---
Patient wants his cell phone, RN said that it was ok.
--- NOTE | 2018-08-03 09:28 | PC.NURSE ---
Patient wanted his cell phone charged, charging it at the nurses station.
--- NOTE | 2018-08-03 09:40 | PC.NURSE ---
pt being cooperative, requested his phone and we were able to give it to him. updated parents who are waiting in the hospital lobby. pt is stable-denies complaints.
--- NOTE | 2018-08-03 09:43 | PC.NURSE ---
Patient is saying that he needs some fresh air, RN has told him that we do not have the staff for him to be going all over the place and that he needs to stay in his room. Patient is now standing in the door way and says that he wont leave the room just needs to breathe different air.
--- NOTE | 2018-08-03 09:59 | PC.NURSE ---
Gave patient a pen and paper so that it keeps his mind busy and calm. RN said that this was ok.
--- NOTE | 2018-08-03 10:14 | PC.NURSE ---
Patient is using the pen and paper that was given to him earlier to keep himself busy.
--- NOTE | 2018-08-03 10:29 | PC.NURSE ---
Patient is still using pen and paper that was given to him to keep him occupied.
--- NOTE | 2018-08-03 10:48 | PC.NURSE ---
Patient is feeling anxious, RN notified.
--- NOTE | 2018-08-03 10:57 | PC.NURSE ---
Patient wanted something to do. RN said to give him a deck of cards.
--- NOTE | 2018-08-03 11:45 | PC.NURSE ---
Patient wanted his phone back from the desk. Patient is currently eating lunch.
--- NOTE | 2018-08-03 12:00 | PC.NURSE ---
Patient is pacing back and forth in the room. Eating his lunch.
--- NOTE | 2018-08-03 12:17 | PC.NURSE ---
Patient keeps trying to come out into the hallway. I told him he needs to stay in his room and there are other patients here. He went back to his room which then he closed the door and it locked. RN opened the door and told him he needed to not shut it all the way due to it locking. He said he would leave it alone.
--- NOTE | 2018-08-03 12:30 | PC.NURSE ---
Patient wants to talk to his Father, BUSINESS PROCESS CONSULTANT notified and said he would tell RN when she gets out of another patients room.
--- NOTE | 2018-08-03 12:45 | PC.NURSE ---
Patient is in his room talking with an interstate bus dispatcher.
--- NOTE | 2018-08-03 13:00 | PC.NURSE ---
Patient is playing cards on the floor in the room.
--- NOTE | 2018-08-03 13:16 | PC.NURSE ---
Patient feels anxious, would like something to do to calm himself down. Another BENEFITS REPRESENTATIVE is finding a book or a coloring book to keep patient busy and more calm.
--- NOTE | 2018-08-03 13:32 | PC.NURSE ---
Patient is coloring. Occasionally coming out of the room trying to interact with other patients.
--- NOTE | 2018-08-03 13:45 | PC.NURSE ---
Patient is jogging around the room and keeps stating that he does not like to be in the room.
--- NOTE | 2018-08-03 14:02 | PC.NURSE ---
Patient is singing very loud in the middle of the room and keeps coming out to the hallway.
--- NOTE | 2018-08-03 14:15 | PC.NURSE ---
Patient is anxious, RN notified, ride will be here in roughly 30 minutes to transfer patient to [facility].
[2018-08-03] MEDS: LORazepam 0.5 MG TABLET 1 MG PO (14:20)
[2018-08-03 14:30] VITALS: BP 160/102; PULSE 108; RESP 18; TEMP 36.4; O2SAT 96
--- NOTE | 2018-08-03 14:32 | PC.NURSE ---
Patient is standing in door way, talking to himself.
--- NOTE | 2018-08-03 14:35 | PC.NURSE ---
ambulance hasn't arrived yet but I gave report to Neisha Priest RN at [facility]. parents have already left for home. pt has taken his ativan and I updated him on plan for going to [facility].
--- NOTE | 2018-08-03 14:42 | PC.NURSE ---
[facility] is here to transport patient to [facility].
--- NOTE | 2018-08-03 14:49 | PC.NURSE ---
Report given to Shelia with [facility]. pt ready to be transferred to [facility].
--- NOTE | 2018-08-03 14:50 | PC.NURSE ---
Patient is now leaving with the ambulance crew.
== END 2018-08-03 14:52 ==
PROVIDERS: Emergency Medicine; Emergency Provider Emergency Medicine
DX: F31.13 Bipolar disorder, current episode manic without psychotic features, severe (principal)
CPT/HCPCS: 36415; 80053; 80178; 80305; 80320; 84443; 85025; 96374; 99285

== ENCOUNTER → 2020-06-02 15:50 | Outpatient (CLI) | payer OTHER, SELFPAY ==
[2020-06-02 17:31] LABS: Add Manual Diff / Slide Review NO; Basophils Absolute Auto 0 /uL (0-100); Basophils Percent Auto 0.6 % (0-2); Eosinophils Absolute Auto 100 /uL (0-450); Eosinophils Percent Auto 1.6 % (2-4); Hematocrit 46.4 % (41-53); Lymphocytes Absolute Auto 1800 /uL (1100-4500); Lymphocytes Percent Auto 20.9 % (25-40); Mean Corpuscular HGB Conc 34.5 % (30-36); Mean Corpuscular Hemoglobin 31.4 PG (26-34); Mean Corpuscular Volume 90.8 fL (80-100); Monocytes Absolute Auto 600 /uL (0-900); Monocytes Percent Auto 6.8 % (3-14); Neutrophils Absolute Auto 6100 /uL (1500-7000); Neutrophils Percent Auto 70.1 % (50-75); Platelet Count 205 X10^3/uL (150-400); Red Blood Cell Count 5.11 X10^6/uL (4.5-5.9); Red Cell Distribution Width 12.6 % (11.6-14.8); White Blood Cell Count 8.7 X10^3/uL (4.5-11.0)
[2020-06-02 17:54] LABS: Lithium 0.7 mmol/L (0.6-1.2)
[2020-06-02 17:58] LABS: BUN Creatinine Ratio 16.4 (6-22); Blood Urea Nitrogen 18 mg/dL (9-20); Calcium 9.7 mg/dL (8.4-10.2); Carbon Dioxide 31 mmol/L (22-32); Chloride 105 mmol/L (98-107); Estimated Glomerular Filt Rate > 60.0 mL/min (>60); Glucose 91 mg/dL (70-100); HEMOLYSIS < 15 (0-50); Potassium 4.5 mmol/L (3.4-5.1); Sodium 140 mmol/L (137-145)
[2020-06-02 18:13] LABS: Free T4, Direct Thyroxine 0.87 ng/dL (0.78-2.19)
[2020-06-02 18:27] LABS: Thyroid Stimulating Hormone 2.12 uIU/mL (0.47-4.68)
== END ==
PROVIDERS: Referring Provider Psychiatry & Neurology Child & Adolescent Psychiatry; Visit Provider Psychiatry & Neurology Child & Adolescent Psychiatry
DX: F31.9 Bipolar disorder, unspecified (principal); Z79.899 Other long term (current) drug therapy
CPT/HCPCS: 36415; 80048; 80178; 82565; 84439; 84443; 84520; 85025